=== PATIENT | male | born 1980 | race Caucasian/White ===

== ENCOUNTER 2019-11-02 19:39 | Emergency (ER) | payer SELFPAY ==
--- NOTE | ~2019-11-02 | XR_ITS ---
EXAMINATION: XR chest 2V 11/02/2019 21:28 INDICATION: Cough and shortness of breath. PROCEDURE: 2 view chest COMPARISON: No prior studies for comparison. FINDINGS: Patchy infiltrates left midlung which may represent atelectasis or developing pneumonia. Th e cardiomediastinal silhouette is within normal limits. There are no pleural effusions. There is no pneumothorax suspected. IMPRESSION: 1: Patchy left sided infiltrates, suspicious for atelectasis or pneumonia. Reviewed, dictated and finalized at location A.
[2019-11-02 19:53] VITALS: BP 152/108; PULSE 79; RESP 20; TEMP 35.7; O2SAT 99
--- NOTE | 2019-11-02 21:32 | PC.NURSE ---
PT AMBULATED IN ED W/O DIFFICULTY, PT SPO2 REMAINED ABOVE 96%, EDP MADE AWARE.
--- NOTE | 2019-11-02 22:31 | ED.FEVER ---
HPI - Fever General Chief Complaint: Fever Stated Complaint: fever, escudero, congestion Time Seen by Provider: 11/02/19 20:55 History of Present Illness HPI Narrative: Patient is 39-year-old male who presents the ER with cough for the last 3 days. He is developed dyspnea with exertion as well. No chest pain or pressure. Denies fever/chills/sweats. He reports mild congestion and the cough is nonproductive. No alleviating factors. Related Data Allergies Allergy/AdvReac Type Severity Reaction Status Date / Time No Known Allergies Allergy Unverified 03/18/19 09:20 Review of Systems Constitutional: Constitutional: Denies chills and Denies fever(s) ENT: Reports nasal congestion and Denies sore throat Cardiovascular: Cardiovascular: Denies chest pain and Denies rapid heart rate Respiratory: Respiratory: Reports chest congestion, Reports cough, Reports dyspnea and Denies wheezing PMFSH Past Medical History Medical History (Updated 11/02/19 @ 22:39 by Justino Larios MD) No pertinent past medical history Surgical History Surgical History (Updated 11/02/19 @ 22:33 by Justino Larios MD) No pertinent past surgical history Social History Social History (Updated 11/02/19 @ 22:33 by Justino Larios MD) Social History: Non-smoker Exam Narrative: Exam Narrative: GENERAL: Well-appearing, well-nourished, and in no acute distress. HEAD: Normocephalic, atraumatic. ENT: Mucous membranes moist. CHEST: Clear to auscultation. No respiratory distress. HEART: Regular rate and rhythm. Normal peripheral pulses. EXTREMITIES: Normal range of motion. No edema. SKIN: Warm, dry, no rash. NEURO: Alert and oriented x3. Course Course Emergency Course: Informed of results. D?c home. Vital Signs Vital signs: Vital Signs Temperature 96.3 F L 11/02/19 19:53 Pulse Rate 79 11/02/19 19:53 Respiratory Rate 11/02/19 19:53 Blood Pressure 152/108 H 11/02/19 19:53 Pulse Oximetry 99 11/02/19 19:53 Temperature 96.3 F L 11/02/19 19:53 Pulse Rate 79 11/02/19 19:53 Respiratory Rate 20 11/02/19 19:53 Blood Pressure 152/108 H 11/02/19 19:53 Pulse Oximetry 99 11/02/19 19:53 MDM - Fever Lab Data Labs: Influenza A Screen Negative Reference Range: Negative Influenza B Screen Negative Reference Range: Negative Strep Screen Presumptive Negative *(Reference Range: Negative)* Imaging Data Radiologist's impression: ITS Impressions Chest X-Ray 11/02/19 21:30 IMPRESSION: 1: Patchy left sided infiltrates, suspicious for atelectasis or pneumonia. Discharge Plan Discharge Clinical Impression: Community acquired pneumonia Patient Disposition: Home, Self-Care Condition: Stable Instructions: Antibiotic Form, Community Acquired Pneumonia (ED) Additional Instructions: Return to the ER if you have worsening shortness of breath, you cannot keep down food or water, or you have additional concerns. Prescriptions: New azithromycin 250 mg tablet See Rx Instructions .ROUTE .COMPLEX Qty: 6 RF: 0 Follow-up/Referrals: UNKNOWN,DOCTOR [Primary Care Provider] - 1 Week
[2019-11-02 23:05] VITALS: BP 142/78; PULSE 90; RESP 20; TEMP 36.8; O2SAT 99
== END 2019-11-02 23:06 | disposition home or self-care (01) ==
PROVIDERS: Emergency Provider Emergency Medicine
DX: J18.9 Pneumonia, unspecified organism (principal)
CPT/HCPCS: 71046; 87081; 87804; 87880; 99283

== ENCOUNTER 2021-04-29 12:47 | Outpatient (CLI) | payer OTHER, SELFPAY ==
--- NOTE | ~2021-04-29 | XR_ITS ---
EXAMINATION: XR hand LT min 3V EXAM DATE: 04/29/2021 13:28 INDICATION: Pain of left hand, nodules posterior sagittal area/3rd MCP. TECHNIQUE: Left hand frontal, lateral and oblique projections obtained and reviewed. There is no tone or study for comparison. FINDINGS: Left metacarpal bones are unremarkable. No pressure erosions. There are no acute fractures or dislocations identified. There is no subcutaneous gas. The soft tissue is unremarkable. There are no radiopaque foreign bodies. IMPRESSION: No acute osseous findings. Reviewed, dictated and finalized at location A. IMPRESSION: No acute osseous findings.
--- NOTE | ~2021-04-29 | XR_ITS ---
EXAMINATION: XR lumbar spine 2-3V DATE: 04/29/2021 13:27 INDICATION: Low back pain TECHNIQUE: Anteroposterior and lateral views of the lumbar spine, and cone-down lateral view of the l umbosacral junction were obtained. COMPARISON: CT, 01/09/2018 FINDINGS: There is unchanged moderate loss of intervertebral disc space height at L5-S1. The vertebra l body heights and alignment are maintained. There is no fracture. Small degenerative osteophytes pro ject from the anterior endplates of multiple vertebral bodies. IMPRESSION: 1. Moderate lower lumbar spondylosis without acute findings or significant interval change. Reviewed, dictated and finalized at location B. IMPRESSION: 1. Moderate lower lumbar spondylosis without acute findings or significant inte rval change.
== END 2021-04-29 12:48 | disposition home or self-care (01) ==
LOC: ANHIMG 12:55
PROVIDERS: PCP Physician Assistant; Visit Provider Physician Assistant
DX: M79.642 Pain in left hand (principal); M47.816 Spondylosis without myelopathy or radiculopathy, lumbar region
CPT/HCPCS: 72100; 73130

== ENCOUNTER 2023-04-21 17:39 | Emergency (ER) | payer SELFPAY ==
--- NOTE | ~2023-04-21 | CT_ITS ---
CT of the Abdomen and Pelvis: Indication: Abdominal pain Technique: 2.5 mm axial scans were obtained through the abdomen and pelvis following intravenous adm inistration of 100 cc of Omnipaque 350. Dose reduction technique was used on this scan by utilizing a utomated exposure control and iterative reconstruction technique. The dose-length product (DLP) was 1 715.04 mGy-cm. COMPARISON: 01/09/2018 Findings: Scans through the lung bases are unremarkable. The liver, spleen, pancreas, gallbladder, adrenals and kidneys are within normal limits. No evidence of aortic aneurysm. No lymphadenopathy. No bowel obstruction or bowel wall thickening. Small appendicolith is present, but there are no other findings suggest appendicitis.. Images through the pelvis were performed. Urinary bladder unremarkable. Prostate gland and seminal ve sicles are unremarkable. No ascites. Impression: No significant abnormalities seen. Reviewed, dictated and finalized at [facility]. Impression: No significant abnormalities seen.
[2023-04-21 22:42] VITALS: PULSE 65; RESP 20; O2SAT 99
[2023-04-21] MEDS: SODIUM CHLORIDE 0.9% IV 1,000 ML 999 ML IV CONT (23:40)
[2023-04-21] MEDS: MORPHINE SULFATE (*CRX) 4 MG/ML INJ IV PUSH (23:41)
[2023-04-21] MEDS: ONDANSETRON INJ 4 MG/2 ML VIAL IV PUSH (23:41)
--- NOTE | 2023-04-21 23:45 | ED.GENADULT ---
HPI - General Adult General Chief complaint: Abdominal Pain Time Seen by Provider: 04/21/23 22:35 History of Present Illness HPI narrative: Patient is a 42-year-old gentleman who presents the emergency department with chief complaint of abdominal pain. Patient reports that started having pain in the right upper quadrant reports it radiates to his back patient reports the pain is worse with inspiration and improved with rest. Patient reports he last ate tacos Related Data Allergies Allergy/AdvReac Type Severity Reaction Status Date / Time No Known Allergies Allergy Unverified 03/18/19 09:20 Review of Systems Review of Systems: A 10 system review of systems was completed on the patient and is negative except for what is stated in the HPI. Nursing and ancillary documentation was reviewed. PMFSH Past Medical History Medical History No pertinent past medical history Surgical History Surgical History No pertinent past surgical history Social History Social History Social History: Non-smoker Exam Narrative: GENERAL: Well-appearing, well-nourished, and in no acute distress. HEAD: Normocephalic, atraumatic. EYES: PERRLA and EOMI. ENT: Nares clear, no rhinorrhea or epistaxis. Mucous membranes moist. NECK: Supple. CHEST: Clear to auscultation. No respiratory distress. HEART: Regular rate and rhythm. No murmur heard. Normal peripheral pulses. ABDOMEN: Soft, tenderness to palpation of the right upper quadrant, nondistended, normal active bowel sounds. EXTREMITIES: Normal range of motion. No edema. SKIN: Warm, dry, no rash. NEURO: No focal deficits. Alert and oriented x3. PSYCH: Normal mood and affect. Course Vital Signs Vital signs: Vital Signs Pulse Rate 65 04/21/23 22:42 Respiratory Rate 20 04/21/23 22:42 Pulse Oximetry 99 04/21/23 22:42 Pulse Rate 73 04/22/23 02:52 Respiratory Rate 15 04/22/23 02:52 Blood Pressure 181/112 H 04/22/23 02:52 Pulse Oximetry 97 04/22/23 02:52 Medical Decision Making MDM Narrative Medical decision making narrative: Differential diagnosis includes acute cholecystitis, appendicitis, diverticulitis Laboratory studies were obtained on the patient which showed a normal CBC CMP was within normal limits electrolytes are within normal limits lipase was normal CT scan of the abdomen pelvis showed no acute intra-abdominal pathology Patient is feeling little bit better at this time patient be discharged home with a course of Bentyl Zofran and should follow-up with his primary care provider Vital Signs Vital Signs: Vital Signs Pulse Rate 65 04/21/23 22:42 Respiratory Rate 20 04/21/23 22:42 Pulse Oximetry 99 04/21/23 22:42 Pulse Rate 73 04/22/23 02:52 Respiratory Rate 15 04/22/23 02:52 Blood Pressure 181/112 H 04/22/23 02:52 Pulse Oximetry 97 04/22/23 02:52 Lab Data 04/21/23 23:48 04/21/23 23:48 Labs: Lab Results 04/21/23 Range/Units 23:48 WBC 10.9 H (4.5-10.0) K/mm3 RBC 5.25 (4.6-6.20) M/mm3 Hgb 15.9 (14.0-18.0) g/dL Hct 46.7 (42.0-52.0) % MCV 89.0 (80-100) fl MCH 30.3 (26-34) pg MCHC 34.0 (32-36) g/dl RDW 13.2 (11.5-14.5) % Plt Count 277 (150-375) k/mm3 MPV 10.8 H (7.4-10.4) fl Immature Gran % (Auto) 0.4 (0-0.5) % Neut % (Auto) 58.6 (45.5-73.1) % Lymph % (Auto) 31.4 (18.3-44.2) % [place] % (Auto) 7.2 (2.6-8.5) % Eos % (Auto) 1.9 (0-4.4) % Baso % (Auto) 0.5 (0.2-1.2) % Lymph # (Auto) 3.43 H (0.9-3.2) K/mm3 [place] # (Auto) 0.8 H (0.1-0.6) K/mm3 Eos # (Auto) 0.2 (0-0.3) K/mm3 Baso # (Auto) 0.1 (0.0-0.1) K/mm3 Abs Immat Gran (auto) 0.04 H (0.00-0.031) K/mm3 Absolute Neuts (auto) 6.4 (1.3-6.7) K/mm3 Absolute Nucleated
[2023-04-22 00:07] LABS: Basophils Absolute Auto 0.1 K/mm3 (0.0-0.1); Basophils Percent Auto 0.5 % (0.2-1.2); Eosinophils Absolute Auto 0.2 K/mm3 (0-0.3); Eosinophils Percent Auto 1.9 % (0-4.4); Hematocrit 46.7 % (42.0-52.0); Hemoglobin 15.9 g/dL (14.0-18.0); Immature Granulocyte Absolute 0.04 K/mm3 (0.00-0.031); Immature Granulocyte Percent A 0.4 % (0-0.5); Lymphocytes Absolute Auto 3.43 K/mm3 (0.9-3.2); Lymphocytes Percent Auto 31.4 % (18.3-44.2); Mean Corpuscular Hemoglobin 30.3 pg (26-34); Mean Platelet Volume 10.8 fl (7.4-10.4); Monocytes Absolute Auto 0.8 K/mm3 (0.1-0.6); Monocytes Percent Auto 7.2 % (2.6-8.5); Neutrophils Absolute Auto 6.4 K/mm3 (1.3-6.7); Neutrophils Percent Auto 58.6 % (45.5-73.1); Platelet Count Result 277 k/mm3 (150-375); Red Blood Count 5.25 M/mm3 (4.6-6.20); Red Cell Distribution Width 13.2 % (11.5-14.5); White Blood Count 10.9 K/mm3 (4.5-10.0)
[2023-04-22 00:13] LABS: Appearance Urine Clear (Clear); Bilirubin Urine Negative (Negative); Blood Urine Negative (Negative); Color Urine Yellow (Yellow); Glucose Urine UA Negative (Negative); Ketones Urine Negative (Negative); Leukocyte Esterase Ur Negative LEU/UL (Negative); Nitrate Urine Negative (Negative); Protein Urine Negative (Negative); Specific Grav Ur 1.014 (1.001-1.035); Urobilinogen Urine 0.2 mg/dL (<2.0)
[2023-04-22 00:23] LABS: Add Urine Microscopic? NO
[2023-04-22 00:45] LABS: Alanine Aminotransferase 35 U/L (6-50); Albumin Level 4.6 g/dL (3.5-5.1); Alkaline Phosphatase 55 U/L (38-126); Anion Gap 10 mmol/L (8-16); Aspartate Amino Transferase 46 U/L (17-59); Bilirubin,Total 0.8 mg/dL (0.2-1.3); Blood Urea Nitrogen 16 mg/dL (9-20); Calcium 9.5 mg/dL (8.4-10.2); Carbon Dioxide 32 mmol/L (22-30); Chloride 98 mmol/L (98-107); Estimated Glomerular Filt Rate > 60; Glucose 99 mg/dL (65-110); Lipase 47 U/L (23-300); Potassium 3.7 mmol/L (3.4-5.0); Sodium 140 mmol/L (137-145)
[2023-04-22 02:52] VITALS: BP 181/112; PULSE 73; RESP 15; O2SAT 97
[2023-04-22] MEDS: MORPHINE SULFATE (*CRX) 4 MG/ML INJ IV PUSH (03:12)
== END 2023-04-22 06:14 | disposition home or self-care (01) ==
PROVIDERS: Emergency Provider Emergency Medicine; PCP Physician Assistant
DX: R10.31 Right lower quadrant pain (principal)
CPT/HCPCS: 36415; 74177; 80053; 81003; 83690; 85025; 96361; 96374; 96375; 99284; J2270; J2405; J7030; Q9967

== ENCOUNTER 2023-09-24 19:01 | Emergency (ER) | payer OTHER, SELFPAY ==
[2023-09-24 19:17] VITALS: BP 127/77; PULSE 76; RESP 20; TEMP 36.9; O2SAT 99
--- NOTE | 2023-09-24 19:19 | ED.GENADULT ---
HPI - General Adult General Chief complaint: Upper Respiratory Infection Stated complaint: Fever/Ear/Throat Pain Time Seen by Provider: 09/24/23 19:19 Source: patient Mode of arrival: ambulatory Limitations: no limitations History of Present Illness HPI narrative: 43-year-old male patient presents to the [facility] with complaints of cold symptoms for the past 4 days. Patient states he has had fevers as high as 102, body aches, chills, ear pain, sore throat, congestion runny nose, fatigue and overall just not feeling well. Patient states he has had some upset stomach and diarrhea but denies any vomiting. Patient states he has been taking some [id number] Mucinex cold and flu sent for his symptoms. Related Data Home Medications Medication Instructions Recorded Confirmed No Home Medications 09/24/23 09/24/23 Allergies Allergy/AdvReac Type Severity Reaction Status Date / Time No Known Allergies Allergy Verified 09/24/23 19:12 Review of Systems Review of Systems: CONSTITUTIONAL: Positive fever, body aches and chills, denies sweats. EYES: Denies visual changes, redness, or discharge. ENT: Positive rhinorrhea, congestion, sore throat, and right otalgia. CARDIOVASCULAR: Denies chest pain, palpitations, or edema. RESPIRATORY: Denies cough or dyspnea. GASTROINTESTINAL: Denies abdominal pain, positive nausea, denies vomiting, positive diarrhea. GENITOURINARY: Denies dysuria or hematuria. SKIN: Denies rash or itching. MUSCULOSKELETAL: Denies back pain, joint pain, or myalgia. NEUROLOGIC: Positive headache, denies numbness, or weakness. PSYCHIATRIC: Denies anxiety or depression. PMFSH Past Medical History Medical History No pertinent past medical history Surgical History Surgical History No pertinent past surgical history Social History Social History Social History: Non-smoker Comments At the time of my signature I agree with nursing past medical history, surgical, social, and family history. There is no relevant family history pertinent to the presenting complaint. Exam Narrative: GENERAL: ill-appearing, well-nourished, and in no acute distress. HEAD: Normocephalic, atraumatic. EYES: PERRLA and EOMI. ENT: Nares with erythema edema noted bilaterally, no rhinorrhea or epistaxis. Mucous membranes moist. Posterior pharynx with erythema and 2+ tonsillar enlargement. Right tympanic membrane does appear cloudy with fluid behind it. NECK: Supple. No lymphadenopathy CHEST: Clear to auscultation. No respiratory distress. HEART: Regular rate and rhythm. No murmur heard. Normal peripheral pulses. ABDOMEN: Soft, nontender, nondistended, normal active bowel sounds. EXTREMITIES: Normal range of motion. No edema. SKIN: Warm, dry, no rash. NEURO: No focal deficits. Alert and oriented x3. Course Course Level of Care: Express Care Visit Vital Signs Vital signs: Vital Signs Temperature 36.9 C 09/24/23 19:17 Pulse Rate 76 09/24/23 19:17 Respiratory Rate 20 09/24/23 19:17 Blood Pressure 127/77 09/24/23 19:17 Pulse Oximetry 99 09/24/23 19:17 Oxygen Delivery Room Air 09/24/23 19:17 Temperature 36.9 C 09/24/23 19:17 Pulse Rate 76 09/24/23 19:17 Respiratory Rate 20 09/24/23 19:17 Blood Pressure 127/77 09/24/23 19:17 Pulse Oximetry 99 09/24/23 19:17 Oxygen Delivery Room Air 09/24/23 19:17 Vital signs reviewed. Medical Decision Making MDM Narrative Medical decision making narrative: Discussed with patient that his influenza B swab has tested positive today given the fact that he is having a lot of sore throat that recently started we will also swab him for strep. I will reassess him once this has resulted. Differential Diagnosis Differential Diagnosis: Differential diagnosis: Allergic rhinitis,
== END 2023-09-24 19:40 | disposition home or self-care (01) ==
PROVIDERS: Emergency Provider Nurse Practitioner Family; PCP Physician Assistant
DX: J10.1 Influenza due to other identified influenza virus with other respiratory manifestations (principal); Z20.822 Contact with and (suspected) exposure to COVID-19
CPT/HCPCS: 87081; 87426; 87804; 87880; 99213; G0463

== ENCOUNTER 2023-10-19 17:31 | Emergency (ER) | payer OTHER, SELFPAY ==
[2023-10-19 17:45] VITALS: BP 146/92; PULSE 78; RESP 16; TEMP 38.1; O2SAT 100
--- NOTE | 2023-10-19 17:48 | ED.URI ---
HPI - URI/Sore Throat General Chief Complaint: Upper Respiratory Infection Stated Complaint: chest hurts,cough,fever,hard to breathe Time Seen by Provider: 10/19/23 18:00 Source: patient, RN notes reviewed and old records reviewed Mode of arrival: ambulatory Limitations: no limitations History of Present Illness HPI Narrative: 43 year old male accompanied by presents to Express Care with complaints of cough, fevers, states he has a painful cough which is productive, has headache, his eyes hurts, he has body aches,sore throat and nasal congestion and generalized malaise since Tuesday. Patient reports that he has not had COVID vaccinations or Influenza shot won't put that stuff in his body. Patient reports that he has been taking Mucinex max for his symptoms and has taken some Tylenol for his fevers. MD elicited complaint: cough and sore throat Onset (ago): day(s) (day 4 of symptoms) Consistency: constant Pain scale (0-10): 8 Able to tolerate fluids by mouth: Yes Treatments prior to arrival: none, acetaminophen and other (Mucinex max) Related Data Allergies Allergy/AdvReac Type Severity Reaction Status Date / Time No Known Allergies Allergy Verified 10/19/23 17:39 Review of Systems Review of Systems: CONSTITUTIONAL: Reports malaise, chills, sweats, or fever. EYES: Denies visual changes, redness, or discharge. ENT: Reports rhinorrhea, congestion, sinus pain,no otalgia and positive for sore throat. CARDIOVASCULAR: Denies chest pain, palpitations, or edema. RESPIRATORY: Reports cough.? Denies acute dyspnea.no tachypnea noted GASTROINTESTINAL: Denies abdominal pain, nausea, vomiting, diarrhea SKIN: Denies rash or itching. MUSCULOSKELETAL:Reports myalgia. NEUROLOGIC: Reports headache. All systems reviewed & are unremarkable except as noted in HPI and below PMFSH Past Medical History Medical History (Updated 10/19/23 @ 18:16 by Delia Du NP) Anxiety Bipolar 1 disorder Hypertension Social History Social History (Updated 10/21/23 @ 10:08 by Delia Du NP) Social History: Non-smoker Smoking status: Never smoker Alcohol intake: current Alcohol use details: rare Substance use: never Substance use type: does not use Living arrangements: with family Gender identity (if verbalized by the patient): Male Comments At time of signature, agree with nursing past medical, surgical, social and family history. There is no relevant family history pertinent to the presenting complaint Exam Narrative: GENERAL: Ill-appearing, well-nourished, obese and in no acute distress. HEAD: Normocephalic EYES: PERRLA, conjunctivae clear ENT: Nares clear, turbinates edematous and erythematous, clear discharge. Mucous membranes moist. TM pearly davila with dull light reflex bilaterally; no tragal tenderness. Oropharynx erythematous without lesions. Tonsils not enlarged and without exudate, no drooling, no hoarseness, no trismus, uvula midline post nasal drainage. NECK: Supple. No lymphadenopathy CHEST: Clear to auscultation, breath sounds equal. No wheezing, rhonchi, rales, or stridor. No respiratory distress, speaks in full sentences.productive cough,no tachypnea, no retractions, SAO2 100% on room air HEART: Regular rate and rhythm. No murmur heard. SKIN: Warm, dry, no rash. NEURO: Alert and oriented x3. PSYCH: Normal mood and affect anxious Course Course Emergency Course: Patient is aware of diagnosis, understands and agrees to treatment plan.? Anticipatory guidance given.? Patient agrees to follow-up as directed and is aware of reasons to seek care at the emergency department. Portions of this record may have been created with voice recognition software Level of Care: Express Care Visit Vital Signs Vital signs: Vital Signs Temperature 38.1 C H 10/19/23 17:45 Pulse Rate 78 10/19/23 17:45 Respiratory Rate 16 10/19/23 17:45 Blood Pressure 146/92 H 10/19/23
== END 2023-10-19 18:33 | disposition home or self-care (01) ==
PROVIDERS: Emergency Provider Registered Nurse; PCP Physician Assistant
DX: U07.1 COVID-19 (principal); I10 Essential (primary) hypertension
CPT/HCPCS: 87081; 87426; 87804; 87880; 99213; G0463

== ENCOUNTER 2023-12-22 15:36 | Emergency (ER) | payer OTHER, SELFPAY ==
[2023-12-22 15:42] VITALS: BP 131/88; PULSE 86; RESP 18; TEMP 36.6; O2SAT 97
--- NOTE | 2023-12-22 16:20 | ED.SKABFB ---
HPI - Skin/Abscess/Foreign Bdy General Chief complaint: Skin/Abscess/Foreign Body Stated complaint: something stuck in R ear Time Seen by Provider: 12/22/23 16:02 History of Present Illness HPI narrative: Patient is a 43-year-old male who presents ER with right ear foreign body. Has been unable to hear from his ear went to his doctor's office and was told that he had something in his ear. He does not recall losing anything in his ear. No ear pain. No additional concerns. Related Data Allergies Allergy/AdvReac Type Severity Reaction Status Date / Time No Known Allergies Allergy Verified 10/19/23 17:39 Review of Systems Constitutional: Constitutional: Reports no additional constitutional complaints ENT: Denies nasal congestion and Denies sore throat Comments: Decreased hearing right-sided PMFSH Past Medical History Medical History (Updated 12/22/23 @ 16:21 by Justino Larios MD) Anxiety Bipolar 1 disorder Hypertension Social History Social History (Updated 10/21/23 @ 10:08 by Delia Du NP) Social History: Non-smoker Smoking status: Never smoker Alcohol intake: current Alcohol use details: rare Substance use: never Substance use type: does not use Living arrangements: with family Gender identity (if verbalized by the patient): Male Exam Narrative: GENERAL: Well-appearing, well-nourished, and in no acute distress. HEAD: Normocephalic, atraumatic. ENT: Mucous membranes moist. Rubber foreign body right TM. Normal left ear canal and TM. EXTREMITIES: Normal range of motion. No edema. SKIN: Warm, dry, no rash. NEURO: Alert and oriented x3. PSYCH: Normal mood and affect. Course Course Emergency Course: Successful removal foreign body. No TM injury. Discharge. Vital Signs Vital signs: Vital Signs Temperature 98 F 12/22/23 15:42 Pulse Rate 86 12/22/23 15:42 Respiratory Rate 18 12/22/23 15:42 Blood Pressure 131/88 12/22/23 15:42 Pulse Oximetry 97 12/22/23 15:42 Oxygen Delivery Room Air 12/22/23 15:42 Temperature 98 F 12/22/23 15:42 Pulse Rate 86 12/22/23 15:42 Respiratory Rate 18 12/22/23 15:42 Blood Pressure 131/88 05/02/24 15:42 Pulse Oximetry 97 12/22/23 15:42 Oxygen Delivery Room Air 12/22/23 15:42 Procedures FB Removal Ear Foreign Body #1: Foreign Body Removal Date: 12/22/23 Foreign Body Removal Time: 16:15 Location: ear canal (R) Foreign Body Suspected: other (ear bud) TM intact pre-procedure: unable to visualize Foreign Body Removed: yes Foreign Body Removal Technique: forceps Tympanic Membrane Intact Post Procedure: Yes Patient Tolerated Procedure: well Complications: none Discharge Plan Discharge Clinical Impression: Ear foreign body Patient Disposition: Home, Self-Care Condition: Stable Instructions: Ear Foreign Body (ED) Additional Instructions: You had a foreign body removed from her ear. Your being given a prescription for medicine to break up residual lax. Return to ER if you have your pain, you cannot hear, or you have additional concerns. Prescriptions: New Debrox 6.5 % drops 5 drp EACH EAR Q12H 4 Days Qty: 15 0RF No Action Paxlovid 300 mg (150 mg x 2)-100 mg tablets,dose pack See Rx Instructions .ROUTE .COMPLEX Qty: 30 0RF Rx Instructions: take TWO 150 mg tablets of nirmatrelvir with ONE 100 mg tablet of ritonavir twice daily for 5 days Follow-up/Referrals: Lambert,NIVIA Peterson [Primary Care Provider] - 1 Week
[2023-12-22 16:37] VITALS: BP 136/90; PULSE 76; RESP 16; TEMP 36.6; O2SAT 100
== END 2023-12-22 16:39 | disposition home or self-care (01) ==
LOC: ANHED 16:29
PROVIDERS: Emergency Provider Emergency Medicine; PCP Physician Assistant
DX: T16.1XXA Foreign body in right ear, initial encounter (principal); I10 Essential (primary) hypertension; W44.G1XA Audio device entering into or through a natural orifice, initial encounter
CPT/HCPCS: 69200; 99283

== ENCOUNTER 2024-06-20 16:27 | Outpatient (CLI) | payer OTHER, SELFPAY ==
--- NOTE | ~2024-06-20 | XR_ITS ---
EXAM: XR lumbar spine 2-3V DATE: 06/20/2024 16:41 HISTORY: LOW BACK PAIN . COMPARISON: 04/29/2021. FINDINGS: 5 nonrib-bearing lumbar-type vertebral bodies. Pedicles intact. 2 mm retrolisthesis at L5- S1. Vertebral body heights preserved. Mild disc space narrowing at L3-4 and L4-5. Moderate narrowing with marginal osteophytosis at L5-S1. Straightening of the normal lumbar lordosis. Mild mid and lower lumbar facet sclerosis/hypertrophy. Mild degenerative change in the right SI joint. IMPRESSION: Multilevel degenerative disc disease, moderate at L5-S1 where there is a grade 1 retrolis thesis. Multilevel mild facet arthropathy. Right SI joint osteoarthritis. Reviewed, dictated and finalized at location K. IMPRESSION: Multilevel degenerative disc disease, moderate at L5-S1 where there is a grade 1 retrolisthesis. Multilevel mild facet arthropathy. Right SI joint osteoarthritis.
== END 2024-06-20 16:28 | disposition home or self-care (01) ==
LOC: ANHIMG 16:29
PROVIDERS: PCP Physician Assistant; Visit Provider Physician Assistant
DX: M51.379 Other intervertebral disc degeneration, lumbosacral region without mention of lumbar back pain or lower extremity pain (principal); M43.17 Spondylolisthesis, lumbosacral region; M47.817 Spondylosis without myelopathy or radiculopathy, lumbosacral region; M47.818 Spondylosis without myelopathy or radiculopathy, sacral and sacrococcygeal region
CPT/HCPCS: 72100

== ENCOUNTER 2024-09-12 09:15 | Outpatient (CLI) | payer OTHER, SELFPAY ==
--- NOTE | 2024-09-12 12:00 | NEURO_ITS ---
Impression: # Complains of numbness of hands. Non-diabetic. ? # Bilateral Carpal Tunnel Syndrome, motor more than sensory. ? # No ulnar neuropathy. ? # Normal needle/EMG exam. Nerve Conduction Studies Anti Sensory Summary Table ?Stim Site NR Peak (ms) P-T Amp (?V) Site1 Site2 Delta-P (ms) Dist (cm) Braxton (m/s) Left Median Anti Sensory (2-3nd Digit) Wrist ? 4.1 45.0 Wrist 2-3nd Digit 4.1 14.0 34 Wrist ? 4.3 18.0 Wrist 2-3nd Digit 4.1 14.0 34 Right Median Anti Sensory (2-3nd Digit) Wrist ? 3.7 47.7 Wrist 2-3nd Digit 3.7 14.0 38 Wrist ? 3.7 38.0 Wrist 2-3nd Digit 3.7 14.0 38 Left Radial Anti Sensory (Base 1st Digit) Wrist ? 1.8 44.7 Wrist Base 1st Digit 1.8 0.0 Right Radial Anti Sensory (Base 1st Digit) Wrist ? 2.1 26.3 Wrist Base 1st Digit 2.1 0.0 Left Ulnar Anti Sensory (5th Digit) Wrist ? 2.4 43.7 Wrist 5th Digit 2.4 14.0 58 Right Ulnar Anti Sensory (5th Digit) Wrist ? 2.3 23.5 Wrist 5th Digit 2.3 14.0 61 Motor Summary Table ?Stim Site NR Onset (ms) O-P Amp (mV) Site1 Site2 Delta-0 (ms) Dist (cm) Braxton (m/s) Left Median Motor (Abd Poll Brev) Wrist ? 4.6 2.4 Elbow Wrist 4.8 29.0 60 Elbow ? 9.4 2.1 Right Median Motor (Abd Poll Brev) Wrist ? 4.9 1.4 Elbow Wrist 4.6 29.0 63 Elbow ? 9.5 1.5 Left Ulnar Motor (Abd Dig Minimi) Wrist ? 2.2 11.1 A Elbow Wrist 4.8 29.0 60 A Elbow ? 7.0 9.9 Right Ulnar Motor (Abd Dig Minimi) Wrist ? 2.5 10.8 A Elbow Wrist 4.7 29.0 62 A Elbow ? 7.2 9.6 F Wave Studies ?NR F-Lat (ms) L-R F-Lat (ms) Left Median (Mrkrs) (Abd Poll Brev) ? 29.38 0.62 Right Median (Mrkrs) (Abd Poll Brev) ? 30.00 0.62 Left Ulnar (Mrkrs) (Abd Dig Min) ? 28.55 0.20 Right Ulnar (Mrkrs) (Abd Dig Min) ? 28.76 0.20 EMG ?Side Muscle Nerve Root Ins Act Fibs Amp Dur Recrt Comment Right 1stDorInt Ulnar C8-T1 Nml Nml Nml Nml Nml Right Ext Indicis Radial (Post Int) C7-8 Nml Nml Nml Nml Nml Right Ext Digitorum Radial (Post Int) C7-8 Nml Nml Nml Nml Nml Right BrachioRad Radial C5-6 Nml Nml Nml Nml Nml Right PronatorTeres Median C6-7 Nml Nml Nml Nml Nml Right Abd Poll Brev Median C8-T1 Nml Nml Nml Nml Nml Right ABD Dig Min Ulnar C8-T1 Nml Nml Nml Nml Nml Left 1stDorInt Ulnar C8-T1 Nml Nml Nml Nml Nml Left Ext Indicis Radial (Post Int) C7-8 Nml Nml Nml Nml Nml Left Ext Digitorum Radial (Post Int) C7-8 Nml Nml Nml Nml Nml Left BrachioRad Radial C5-6 Nml Nml Nml Nml Nml Left PronatorTeres Median C6-7 Nml Nml Nml Nml Nml Left Abd Poll Brev Median C8-T1 Nml Nml Nml Nml Nml Left ABD Dig Min Ulnar C8-T1 Nml Nml Nml Nml Nml MTDD
== END 2024-09-12 09:16 | disposition home or self-care (01) ==
LOC: ANHNEURO 09:16
PROVIDERS: PCP Physician Assistant; Visit Provider Physician Assistant
DX: G56.03 Carpal tunnel syndrome, bilateral upper limbs (principal)
CPT/HCPCS: 95886; 95911

== ENCOUNTER 2024-12-10 08:10 | Emergency (ER) | payer OTHER, SELFPAY ==
--- NOTE | 2024-12-10 08:12 | ED_ITS ---
HPI - Skin/Abscess/Foreign Bdy General Chief complaint: Skin/Abscess/Foreign Body Stated complaint: Rash Time Seen by Provider: 12/10/24 08:30 Source: patient and RN notes reviewed Mode of arrival: ambulatory Limitations: no limitations History of Present Illness HPI narrative: 44-year-old male presents with concern of for rash. Reports blistering itchy rash on his arms and left knee. Reports he was recently working in a crawl space that had roots growing in it. He is allergic to poison oswaldo. He has use calamine lotion without relief. He denies swollen lips, swollen tongue, trouble breathing. MD complaint: rash Related Data Home Medications ?Medication ?Instructions ?Recorded ?Confirmed ?Last Taken ?Type amlodipine 5 mg tablet mg 12/10/24 Unknown History buspirone 15 mg tablet mg 12/10/24 Unknown History lisinopril 20 tablet 12/10/24 Unknown History mg-hydrochlorothiazide 12.5 mg tablet venlafaxine 75 mg capsule,extended mg PO 12/10/24 Unknown History release 24 hr Allergies Allergy/AdvReac Type Severity Reaction Status Date / Time No Known Allergies Allergy Verified 12/10/24 08:14 Review of Systems Review of Systems: CONSTITUTIONAL: Denies malaise, chills, sweats, or fever. EYES: Denies redness, or discharge. ENT: Denies rhinorrhea, congestion, swollen lips, swollen tongue CARDIOVASCULAR: Denies chest pain, palpitations, or edema. RESPIRATORY: Denies cough or dyspnea. GASTROINTESTINAL: Denies abdominal pain, nausea, vomiting SKIN: Reports itchy blistering rash on bilateral arms and left leg MUSCULOSKELETAL: Denies joint pain or myalgia. NEUROLOGIC: Denies headache. All systems reviewed & are unremarkable except as noted in HPI and below [facility] Past Medical History Medical History (Updated 12/10/24 @ 08:43 by Carolina Morgan NP) Anxiety Bipolar 1 disorder Hypertension Social History Social History (Updated 10/21/23 @ 10:08 by Delia Du NP) Social History: Non-smoker Smoking status: Never smoker Alcohol intake: current Alcohol use details: rare Substance use: never Substance use type: does not use Living arrangements: with family Gender identity (if verbalized by the patient): Male Comments At time of signature, agree with nursing past medical, surgical, social and family history. There is no relevant family history pertinent to the presenting complaint Exam Narrative: GENERAL: Well-appearing, well-nourished, and in no acute distress. HEAD: Normocephalic, atraumatic. EYES: PERRLA, conjunctivae clear, and EOMI. ENT: Mucous membranes moist. Oropharynx without edema, erythema or lesions. NECK: Supple. No lymphadenopathy CHEST: Clear to auscultation. No respiratory distress. HEART: Regular rate and rhythm. SKIN: Warm, dry. Scattered intact fluid-filled blisters noted to bilateral arms, patch of erythematous papular rash noted to left leg NEURO: Alert and oriented x3. PSYCH: Normal mood and affect Course Course Emergency Course: Patient is aware of diagnosis, understands and agrees to treatment plan. Anticipatory guidance given. Patient agrees to follow-up as directed and is aware of reasons to seek care at the emergency department. Portions of this record may have been created with voice recognition software Level of Care: Express Care Visit Vital Signs Vital signs: Reviewed. MDM - Skin/Abscess/Foreign Bdy MDM Narrative Medical decision making narrative: Does not appear at this time to be erythema multiforme, bullous, SJS, TEN; no evidence at this time to suggest RMSF, endocarditis or Lyme disease; patient looks well, nontoxic and is tolerating oral intake; no neurologic signs or symptoms; no headache, photophobia or neck pain; afebrile; appropriate for initial outpatient treatment; discussed the importance of follow-up, patient agrees; question, viral exanthema, contact dermatitis, allergic dermatitis, eczema, urticaria, [ xx ]. No soft palate or uvula edema, no tongue, lip edema or other mucosal involvement, no respiratory compromise, no stridor, no wheezing, no wheezing, no history of syncope, no hypotension, no nausea, vomiting, or diarrhea. Instructed patient to go to nearest ER immediately for any worsening symptoms including but not limited to: fever, spreading rash, pain, sore throat, headache, dizziness, chest pain, trouble breathing, or any symptoms concerning to the patient. Critical Care Time Critical Care Time Critical Care Time: No Discharge Plan Discharge Clinical Impression: Contact dermatitis Patient Disposition: Home Condition: Stable Instructions: Contact Dermatitis (ED) Additional Instructions: Wash the area with gentle soap and water only. Use skin cream as prescribed to reduce itchiness Avoid scratching when possible to prevent worsening of the condition and disruption of the skin that could lead to bacterial infection To relieve itching, place a cool washcloth or some ice over the area that itches, rather than scratching Follow up with primary care provider or seek ER if you have trouble breathing, become hoarse, or start wheezing, develop belly cramps, vomiting or feel dizzy. Patient Language: Setswana Prescriptions: New triamcinolone acetonide 0.1 % cream 1 applic TOPICAL BID 7 Days Qty: 80 0RF methylprednisolone [Medrol (Marco A)] 4 mg tablets,dose pack See Rx Instructions .ROUTE .COMPLEX Qty: 21 0RF Rx Instructions: orally per package directions No Action venlafaxine 75 mg capsule,extended release 24hr PO lisinopril-hydrochlorothiazide 20-12.5 mg tablet amlodipine 5 mg tablet buspirone 15 mg tablet Follow-up/Referrals: Lambert,NIVIA Peterson [Primary Care Provider] - Stand Alone Forms: Work/School Release IP
[2024-12-10 08:21] VITALS: BP 145/97; PULSE 71; RESP 19; TEMP 36.2; O2SAT 97
[2024-12-10] MEDS: methylPREDNISolone SOD SUCC 125 MG VIAL IM (08:37)
== END 2024-12-10 08:50 | disposition home or self-care (01) ==
PROVIDERS: Emergency Provider Nurse Practitioner; PCP Physician Assistant
DX: L25.9 Unspecified contact dermatitis, unspecified cause (principal); I10 Essential (primary) hypertension
CPT/HCPCS: 96372; 99213; G0463; J2919

== ENCOUNTER 2025-01-09 17:06 | Emergency (ER) | payer OTHER, SELFPAY ==
[2025-01-09 17:15] VITALS: BP 124/83; PULSE 76; RESP 16; TEMP 36.6; O2SAT 98
--- NOTE | 2025-01-09 18:44 | ED.GENADULT ---
HPI - General Adult General Chief complaint: Unspecified Stated complaint: allergies Time Seen by Provider: 01/09/25 18:00 Source: patient and RN notes reviewed Mode of arrival: ambulatory Limitations: no limitations History of Present Illness HPI narrative: 44-year-old male presents to [facility] complaining of upper respiratory symptoms for 1 month. Patient reports having congestion, sneezing, itchy eyes, watery eyes, runny nose, scratchy throat over the last month. Recently saw his PCP and was given allergy medications including allergy nasal spray an allergy eye drops. Patient is only use the once has not noticed a change in his symptoms. Patient also has been taking daily Zyrtec for the last month. Patient has no history of seasonal allergies but is not seen supervisor home economics before her symptoms. Patient denies any cough, fever, sinus pressure, nasal discharge, ear pain, body aches, chills. Related Data Home Medications ?Medication ?Instructions ?Recorded ?Confirmed ?Last Taken ?Type amlodipine 5 mg tablet 5 mg PO DAILY 12/10/24 01/09/25 Unknown History buspirone 15 mg tablet 15 mg PO DAILY 12/10/24 01/09/25 Unknown History lisinopril 20 1 tablet PO DAILY 12/10/24 01/09/25 Unknown History mg-hydrochlorothiazide 12.5 mg tablet venlafaxine 75 mg capsule,extended 75 mg PO QPM 12/10/24 01/09/25 Unknown History release 24 hr azelastine 0.05 % eye drops 1 drp ophthalmic (eye) DAILY 01/09/25 01/09/25 Unknown History azelastine 137 mcg (0.1 %) nasal 137 mcg intranasal DAILY 01/09/25 01/09/25 Unknown History spray cetirizine 10 mg tablet (24Hour 10 mg PO DAILY 01/09/25 01/09/25 Unknown History Allergy) Allergies Allergy/AdvReac Type Severity Reaction Status Date / Time No Known Allergies Allergy Verified 01/09/25 17:09 Review of Systems Review of Systems: CONSTITUTIONAL: Denies fever, chills, body aches, or sweats. EYES: Denies visual changes, redness, or discharge. Positive for Watery and itchy eyes. ENT: Positive for rhinorrhea, congestion, scratchy throat, sneezing. Negative for sore throat, or otalgia. CARDIOVASCULAR: Denies chest pain, palpitations, or edema. RESPIRATORY: Denies cough, wheezing, or dyspnea. GASTROINTESTINAL: Denies abdominal pain, nausea, vomiting, or diarrhea. GENITOURINARY: Denies dysuria or hematuria. SKIN: Denies rash or itching. MUSCULOSKELETAL: Denies back pain, joint pain, or myalgia. NEUROLOGIC: Denies headache, numbness, or weakness. PSYCHIATRIC: Denies anxiety or depression. All other systems reviewed are negative, except as documented in HPI. [facility] Past Medical History Medical History (Updated 01/09/25 @ 18:17 by Wilfrido Avery APRN) Anxiety Bipolar 1 disorder Hypertension Social History Social History (Updated 10/21/23 @ 10:08 by Delia Du NP) Social History: Non-smoker Smoking status: Never smoker Alcohol intake: current Alcohol use details: rare Substance use: never Substance use type: does not use Living arrangements: with family Gender identity (if verbalized by the patient): Male Comments At the time of my signature, I reviewed and agree with the nursing past medical, surgical, social, and family history. There is no relevant family history pertinent to the patient complaint. Exam Narrative: GENERAL: This is a well-nourished, well-developed adult, in no apparent distress. They are non ill-appearing, nontoxic appearing. HEAD: normocephalic, atraumatic. EYES: Sclera clear/white. Conjunctiva normal. Vision is grossly intact. Extraocular movements intact. Eyes are watery bilaterally. EARS: External ears normal, auditory canals clear and without drainage, TMs normal without perforation. Hearing grossly intact. NOSE: External nose normal with no obvious nasal discharge, nasal turbinates edematous bilaterally without erythema or discharge, no rhinorrhea. THROAT: Mucous membranes moist, posterior pharynx clear, without erythema or swelling. Uvula midline. Postnasal drip present NECK: Neck supple, non-tender without lymphadenopathy, masses or thyromegaly. CARDIOVASCULAR: Regular rate and rhythm without murmurs, gallops, or rubs. RESPIRATORY: Clear to auscultation. Breath sounds equal bilaterally. No wheezes, rales, or rhonchi. SKIN: warm, Dry, intact with no suspicious lesions or rash, good texture and turgor. NEURO: awake, alert, and oriented to person, place and time. There were no obvious focal neurologic abnormalities. EXTREMITIES: No joint tenderness, effusion, or edema noted. BACK: Nontender without deformity. Course Course Emergency Course: Portions of this record may have been created with voice recognition software Level of Care: Express Care Visit Vital Signs Vital signs: Vital Signs Temperature 97.9 F 01/09/25 17:15 Pulse Rate 76 01/09/25 17:15 Respiratory Rate 16 01/09/25 17:15 Blood Pressure 124/83 01/09/25 17:15 Pulse Oximetry 98 01/09/25 17:15 Temperature 97.9 F 01/09/25 17:15 Pulse Rate 76 01/09/25 17:15 Respiratory Rate 16 01/09/25 17:15 Blood Pressure 124/83 01/09/25 17:15 Pulse Oximetry 98 01/09/25 17:15 Reviewed Medical Decision Making MDM Narrative Medical decision making narrative: Symptoms are likely related to allergic rhinitis. Encourage patient to continue using prescribed medication and allow time for medication to be effective. Patient states he has Flonase at home and I recommend that he start using it daily for congestion along with his other medications. Advised patient to avoid any decongestants or Afrin since he has a history of hypertension. Told patient he may need supervisor home economics referral move his symptoms persist or fail treatment. Discussed physical exam findings. Advised supportive measures and signs/symptoms to go to the ER. Pt is appropriate for outpt treatment and f/u. Differential Diagnosis Differential Diagnosis: Allergic rhinitis, sinusitis, upper respiratory infection Vital Signs Vital Signs: Vital Signs Temperature 97.9 F 01/09/25 17:15 Pulse Rate 76 01/09/25 17:15 Respiratory Rate 16 01/09/25 17:15 Blood Pressure 124/83 01/09/25 17:15 Pulse Oximetry 98 01/09/25 17:15 Temperature 97.9 F 01/09/25 17:15 Pulse Rate 76 01/09/25 17:15 Respiratory Rate 16 01/09/25 17:15 Blood Pressure 124/83 01/09/25 17:15 Pulse Oximetry 98 01/09/25 17:15 Critical Care Time Critical Care Time Critical Care Time: No Discharge Plan Discharge Clinical Impression: Allergic rhinitis Patient Disposition: Home Condition: Stable Instructions: Allergies (ED) Additional Instructions: Take care your allergy medications as directed. You may also use Flonase 2 sprays each nostril daily to help with congestion inflammation. Follow-up with primary care provider in 3-5 days. Your may need to see an supervisor home economics if symptoms persist. If you develop any yellow nasal discharge, fevers, worsening sinus pressure follow-up with primary care provider. He developed any breathing problems, chest pain or or any serious concerns please go to the ER immediately. Patient Language: Latvian Prescriptions: No Action azelastine 0.05 % drops 1 drp ophthalmic (eye) DAILY azelastine 137 mcg (0.1 %) spray,non-aerosol 137 mcg INTRANASAL DAILY cetirizine [24Hour Allergy] 10 mg tablet 10 mg PO DAILY venlafaxine 75 mg capsule,extended release 24hr 75 mg PO QPM lisinopril-hydrochlorothiazide 20-12.5 mg tablet 1 tablet PO DAILY amlodipine 5 mg tablet 5 mg PO DAILY buspirone 15 mg tablet 15 mg PO DAILY Follow-up/Referrals: Lambert,NIVIA Peterson [Primary Care Provider] - Time of Disposition: 18:17
== END 2025-01-09 18:22 | disposition home or self-care (01) ==
PROVIDERS: PCP Physician Assistant
DX: J30.9 Allergic rhinitis, unspecified (principal); F31.9 Bipolar disorder, unspecified; I10 Essential (primary) hypertension
CPT/HCPCS: 99211; G0463